=== PATIENT | female | born 2000 | race Caucasian/White ===

== ENCOUNTER 2022-05-20 10:27 | Outpatient (CLI) | payer BC, SELFPAY ==
--- NOTE | 2022-05-22 13:02 | WPDHOLTEREM ---
Holter/Event Monitor Holter/Event Monitor Date of procedure: 05/22/22 Holter/Event Procedure: 24 Hr Holter Monitor Indications: Elevated HR Conclusion: 1. 24 hour holter monitor on 05/20/22. 2. Underlying rhythm is sinus rhythm. HR range 62-156 bpm; average HR 89 bpm. 3. There are 6 premature supraventricular complexes and 1 supraventricular couplet. No supraventricular tachycardia. 4. No premature ventricular complexes. No ventricular tachycardia. 5. No sinoatrial or atrioventricular blocks. No significant pauses greater than 2 seconds. 6. Patient reports symptoms of upper chest pain and headache which demonstrate sinus rhythm, HR range 88-107 bpm.
--- NOTE | 2022-05-28 17:08 | P.PCNHOL_ITS ---
Holter/Event Monitor Holter/Event Monitor Date of procedure: 05/28/22 Holter/Event Procedure: 24 Hr Holter Monitor Diagnosis: Elevated heart rate Indications: Elevated heart rate Image/Tracing Quality: Acceptable Finding: Underlying rhythm is sinus with an average heart rate 89 beats per minute minimum of 62 beats per minute occurring at 10:38 a.m. and maximum 156 beats per minute occurring at 8:50 p.m.. There is no atrial fibrillation, atrial flutter, prolonged pauses, high-grade AV blocks. There is no SVT, sustained or nonsustained ventricular tachycardia. There were 6 isolated premature atrial contractions noted and 1 atrial pair. The longest RR interval was 1.1 seconds occurring at 9:23 a.m.. Patient's symptom diary entries complained of pain in the breast or upper chest at 2:47 p.m. not associated with arrhythmia or billable strips. Patient made of headache at 7:00 a.m. in association with sinu s rhythm heart rate 88 beats per minute without ectopy. Conclusion: Fairly unremarkable Holter monitor with rare premature atrial contractions and no sustained or nonsustained arrhythmias. Maximum heart rate appears to be consistent with sinus tachycardia, however, activity at that time was not documented. Clinical correlation advised.
== END 2022-05-20 10:28 | disposition home or self-care (01) ==
PROVIDERS: Visit Provider Obstetrics & Gynecology
DX: R00.0 Tachycardia, unspecified (principal)
CPT/HCPCS: 93225; 93226